=== PATIENT | male | born 1995 | race Caucasian/White ===

== ENCOUNTER 2020-05-05 14:05 | Emergency (ER) | payer OTHER, SELFPAY ==
[2020-05-05 14:14] VITALS: BP 143/82; PULSE 73; RESP 20; TEMP 36.6; O2SAT 100
--- NOTE | 2020-05-05 14:33 | ED.GENADULT ---
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 He states some of the totes probably weighed 50 pounds. He states that pain was constant to right axilla region for 2-3 hours and increased with movement and deep breaths. He reports he took an Aleve and presently he has minimal intermittent pain at this time. He denies any shortness of breath, no tachypnea or any accessory muscle use noted with SAO2 100% on room air. MD complaint: pain right scapula area to right lateral chest at axilla after lifting Onset (ago): hour(s) (4) Location: chest (right lateral chest at axilla) and back (right scapula area) Radiation: other (radiated from right scapula to right lateral chest at axilla) Severity: mild Severity scale (1-10): 1 Quality: aching and sharp Pain Consistency: intermittent Relieving factors: medication Exacerbating factors: movement Treatments prior to arrival: NSAID Related Data Allergies Allergy/AdvReac Type Severity Reaction Status Date / Time Tetracyclines Allergy Unknown Hives / Verified 05/05/20 14:23 Red Face Review of Systems Review of Systems: Narrative: CONSTITUTIONAL: Denies fever, chills, or sweats. EYES: Denies visual changes, redness, or discharge. ENT: Denies rhinorrhea, congestion, sore throat, or otalgia. CARDIOVASCULAR: Denies anterior chest pain,lateral chest wall at axilla on right, no palpitations, or edema. RESPIRATORY: Denies cough or dyspnea. GASTROINTESTINAL: Denies abdominal pain, nausea, vomiting, or diarrhea. GENITOURINARY: Denies dysuria or hematuria. SKIN: Denies rash or itching. MUSCULOSKELETAL: right scapula pain radiating to right lateral chest at axilla area, no joint pain, or myalgia. NEUROLOGIC: Denies headache, numbness, or weakness. PSYCHIATRIC: Denies anxiety or depression. All systems reviewed & are unremarkable except as noted in HPI and below PMFSH Past Medical History Medical History (Updated 05/06/20 @ 14:31 by Jyoti Galvan NP) Arthritis Back pain spinal stenosis, bulging discs in lumbar back Fracture of right wrist Pneumonia Surgical History Surgical History (Updated 05/06/20 @ 14:20 by Jyoti Galvan NP) No history of previous surgery Family History Family History (Updated 05/06/20 @ 14:24 by Jyoti Galvan NP) Other No significant family history Social History Social History (Updated 05/06/20 @ 14:22 by Jyoti Galvan NP) Smoking packs per day: 0.25 Smoking cigarettes per day: 5.0 Years smoked: 8 Smoking pack-years: 2.00 Smoking status: Current every day smoker Tobacco type: e-cigarettes/vaping Alcohol intake: unknown Substance use: never Living arrangements: with family Gender identity (if verbalized by the patient): Male Comments At time of signature, agree with nursing past medical, surgical, social and family history. There is no relevant family history pertinent to the presenting complaint Exam Narrative: Exam Narrative: GENERAL: Well-appearing, well-nourished, and in no acute distress. HEAD: Normocephalic, atraumatic. EYES: PERRLA and EOMI. ENT: Nares clear, no rhinorrhea or epistaxis. Mucous membranes moist.TM's normal with good light reflex, throat pink with no exudates or lesions, no tonsil enlargement. NECK: Supple.no lymphadenopathy, moves neck without discomfort CHEST: Clear to auscultation. No respiratory distress.SAO2 100% on room air HEART: Regular rate and rhythm. No murmur heard. Normal peripheral pulses. ABDOMEN: Soft, nontender,
== END 2020-05-05 14:56 | disposition home or self-care (01) ==
PROVIDERS: Emergency Provider Registered Nurse; PCP Family Medicine
DX: S46.911A Strain of unspecified muscle, fascia and tendon at shoulder and upper arm level, right arm, initial encounter (principal); M79.621 Pain in right upper arm; X50.3XXA Overexertion from repetitive movements, initial encounter; Y99.0 Civilian activity done for income or pay; M19.90 Unspecified osteoarthritis, unspecified site; F17.210 Nicotine dependence, cigarettes, uncomplicated
CPT/HCPCS: 99213; G0463

== ENCOUNTER 2021-12-14 14:05 | Emergency (ER) | payer OTHER, SELFPAY ==
--- NOTE | 2021-12-14 14:08 | ED.ABDPAIN ---
HPI - Abdominal Pain General Stated Complaint: sharp pain on right side diahhrea Time Seen by Provider: 12/14/21 14:08 Source: patient and RN notes reviewed History of Present Illness HPI narrative: Patient is a 26-year-old male who presents the urgent care with complaints of right-sided intermittent abdominal pain with loose stools. Patient states been ongoing for approximately 1 month and he did not go to work today due to 1 episode of pain. Patient states that he went to his doctor's office and they told him it would be an hour wait for an evaluation and therefore the patient left. Patient states that the pain comes as quickly as it goes and there is only been 1 time where it lasted approximately 4 hours. Patient states that is not associated with any nausea, vomiting or fevers. Patient has not taken anything [id number] for his symptoms. Patient does not associate his intermittent pain with activity or changes in diet. States that he has approximately 1-2 loose stools per day. Denies any blood in the stool. Denies any urinary symptoms. Patient states his 1 issue today is needing a work note. No other acute complaints. No acute distress noted. Patient aware of the plan of care. Some parts of this dictation were generated by voice recognition software and may contain typographical and/or grammatical inaccuracies. Related Data Home Medications Medication Instructions Recorded Confirmed No Home Medications 12/14/21 12/14/21 Allergies Allergy/AdvReac Type Severity Reaction Status Date / Time Tetracyclines Allergy Unknown Hives / Verified 05/05/20 14:23 Red Face Review of Systems Review of Systems: CONSTITUTIONAL: Denies fever, chills, or sweats. EYES: Denies visual changes, redness, or discharge. ENT: Denies rhinorrhea, congestion, sore throat, or otalgia. CARDIOVASCULAR: Denies chest pain, palpitations, or edema. RESPIRATORY: Denies cough or dyspnea. GASTROINTESTINAL: Reports of intermittent right-sided abdominal pain with loose stools not occurring at this time GENITOURINARY: Denies dysuria or hematuria. SKIN: Denies rash or itching. MUSCULOSKELETAL: Denies back pain, joint pain, or myalgia. NEUROLOGIC: Denies headache, numbness, or weakness. All other systems reviewed are negative, except as documented in HPI. ON LICENSE OF [facility] Past Medical History Medical History (Updated 12/14/21 @ 14:39 by WILIAN Mckinnon) Arthritis Back pain spinal stenosis, bulging discs in lumbar back Fracture of right wrist Pneumonia Surgical History Surgical History (Updated 05/06/20 @ 14:20 by Jyoti Galvan NP) No history of previous surgery Family History Family History (Updated 05/06/20 @ 14:24 by Jyoti Galvan NP) Other No significant family history Social History Social History (Updated 05/06/20 @ 14:22 by Jyoti Galvan NP) Smoking packs per day: 0.25 Smoking cigarettes per day: 5.0 Years smoked: 8 Smoking pack-years: 2.00 Smoking status: Current every day smoker Tobacco type: e-cigarettes/vaping Alcohol intake: unknown Substance use: never Gender identity (if verbalized by the patient): Male Comments At the time of my signature, I reviewed and agree with the nursing past medical, surgical, social, and family history. There is no relevant family history pertinent to the patient complaint. Exam Narrative: GENERAL: This is a well-nourished, well-developed patient, in no apparent distress. HEAD: normocephalic, atraumatic. EYES: PERRL. Sclera clear/white. Vision is grossly intact. EARS: External ears normal NOSE: External nose normal with no obvious nasal discharge, nares without redness, no rhinorrhea. THROAT: Mucous membranes moist NECK: Neck supple CARDIOVASCULAR: Regular rate and rhythm without murmurs, gallops, or rubs. RESPIRATORY: Clear to auscultation. Breath sounds equal bilaterally. No wheezes, rales, or rhonchi. GASTROINTESTINAL: Abdomen soft, non-ten
[2021-12-14 14:12] VITALS: BP 117/78; PULSE 86; RESP 14; TEMP 36.7; O2SAT 100
[2021-12-14 14:26] VITALS: BP 117/78; PULSE 86; RESP 14; TEMP 36.7; O2SAT 100
== END 2021-12-14 14:40 | disposition home or self-care (01) ==
PROVIDERS: Emergency Provider Nurse Practitioner Family; PCP Family Medicine
DX: R10.9 Unspecified abdominal pain (principal); M19.90 Unspecified osteoarthritis, unspecified site; F17.290 Nicotine dependence, other tobacco product, uncomplicated
CPT/HCPCS: 99211; G0463